=== PATIENT | female | born 1945 | race American Indian/Alaskan Native ===

== ENCOUNTER 2018-02-17 13:31 | Outpatient (CLI) | payer MEDICARE ==
--- NOTE | 2018-02-17 16:28 | XRay Report ---
XRAY BILATERAL HIPS AND AP PELVIS THREE VIEWS: 02/17/18 CLINICAL: Bilateral hip pain FINDINGS: Right: No fracture or dislocation. Mild osteoarthritis with mild superolateral joint space narrowing and superior acetabular eburnation. Normal soft tissues. Left: No fracture or dislocation. Minimal osteoarthritis with superior acetabular eburnation.Normal soft tissues. Bilateral pubic bone sclerosis and irregularity.Bilateral SI joint sclerosis. No erosions. IMPRESSION: Mild osteoarthritis of the hips. Bilateral osteitis pubis and bilateral sacroiliitis.
== END 2018-02-17 13:32 | disposition home or self-care (01) ==
LOC: SPVIMAG 13:31
PROVIDERS: ATTEND Orthopaedic Surgery Sports Medicine
DX: M16.0 Bilateral primary osteoarthritis of hip (principal); M46.1 Sacroiliitis, not elsewhere classified
CPT/HCPCS: 73521

== ENCOUNTER 2020-09-22 12:05 | Outpatient (CLI) | payer MEDICARE | END 2020-09-22 12:06 | disposition home or self-care (01) | LOC: SPVWC 12:05 | DX: Z12.31 Encounter for screening mammogram for malignant neoplasm of breast (principal) | CPT/HCPCS: 77067 ==

== ENCOUNTER 2021-10-16 14:27 | Outpatient (CLI) | payer MEDICARE ==
--- NOTE | 2021-10-17 09:23 | Mammography Report ---
DEXA BONE DENSITY SCAN INDICATION / CLINICAL INFORMATION: OSTEOPOROSIS. 76 years Female COMPARISON: None available. LUMBAR SPINE, L1-L4: - Bone mineral density (BMD) = 0.955 g/cm2. - T-score = -1.8 - Z-score = 0.8 Change (%) since most recent prior (if available): None available. LEFT HIP, NECK : - Bone mineral density (BMD) = 0.592 g/cm2. - T-score = -2.5 - Z-score = -1.0 Change (%) since most recent prior (if available): None available. IMPRESSION: 1. WHO Classification: Osteoporosis. Fracture Risk: High. Note: 10-Year Fracture Risk (FRAX) not reported. This DEXA unit lacks FRAX functionality. BMD Reporting Guidelines (ISCD, 2015) BMD Reporting in Postmenopausal Women and in Men Age 50 and Older - T-scores are preferred. - The WHO densitometric classification is applicable. BMD Reporting in Females Prior to Menopause and in Males Younger Than Age 50 - Z-scores, not T-scores, are preferred. This is particularly important in children. - A Z-score of -2.0 or lower is defined as below the expected range for age, and a Z-score above -2.0 is within the expected range for age. - Osteoporosis cannot be diagnosed in men under age 50 on the basis of BMD alone. - The WHO diagnostic criteria may be applied to women in the menopausal transition. http://www.iscd.org/official-positions/9989-yicm-meubifmm-positions-adult/ Signer Name: Vernon Dwyer MD Signed: 10/17/2021 9:19 AM Workstation Name: [id number]
--- NOTE | 2021-10-17 15:18 | Mammography Report ---
DIGITAL SCREENING MAMMOGRAM WITH CAD, 10/17/2021 CLINICAL INFORMATION / INDICATION: Routine screening mammography. SCREENING MAMMO TECHNIQUE: Digital bilateral 2D mammography was obtained in the craniocaudal and mediolateral obliqu e projections. This examination was interpreted with the benefit of Computer-Aided Detection analysis . COMPARISON: 09/22/2020 FINDINGS: Breast Density: There are scattered areas of fibroglandular density. No dominant mass, suspicious calcifications, or architectural distortion in either breast. Largely unchanged nodular densities in the breasts, commonly fibroglandular or fibrocystic change. IMPRESSION: No mammographic evidence of malignancy. Follow up recommendation: Routine yearly BI-RADS Category 2: Benign. A "normal" or negative report should not discourage follow up or biopsy of a clinically significant f inding. A written summary of these findings will be mailed to the patient. The patient will be entered into a mammography reporting system which will generate a reminder letter for the patient's next appointmen t at the appropriate interval. The [employer] recommends yearly mammograms starting at age 40 and continuing as l pricila as a woman is in good health. Breast MRI is recommended for women with an approximate 20-25% or greater lifetime risk of breast cancer, including women with a strong family history of breast or ova prem cancer or who have been treated for Hodgkin's disease. Signer Name: Vernon Dwyer MD Signed: 10/17/2021 3:13 PM Workstation Name: [id number]
== END 2021-10-16 14:28 | disposition home or self-care (01) ==
LOC: SPVWC 14:27
DX: Z12.31 Encounter for screening mammogram for malignant neoplasm of breast (principal); M81.0 Age-related osteoporosis without current pathological fracture
CPT/HCPCS: 77067; 77080